=== PATIENT | female | born 1990 | race Caucasian/White ===

== ENCOUNTER 2018-12-23 13:48 | Outpatient (CLI) | payer MEDICAID ==
[~2018-12-23 13:48] MED LIST: CEPH-443
[2018-12-23 14:15] VITALS: BP 107/64; PULSE 91; RESP 18
[2018-12-23] MEDS ORDERED: TERBUTALINE 1 MG/ML INJ SC ONE (16:00)
[2018-12-23] MEDS ORDERED: LACTATED RINGER'S 1,000 ML IV SCH (16:00)
--- NOTE | 2018-12-23 17:04 | PN ---
Triage Information Date/Time Reason for visit: Uterine contractions Weeks of Gestation 28-year-old 3 para 2 at 38 weeks and 1 day of gestation with estimated date of delivery January 05, 2019 Patient presents with chief complaint of uterine contractions with pain level of 5-6 over 10 She reports positive movement, denies vaginal bleeding or leaking fluid Prior history significant for prior x2 She is currently scheduled for repeat on December 28 /Para 3 para 2 Diabetes: none Hypertention: none Objective Vital Signs Date Temp Pulse Resp B/P (MAP) Pulse Ox O2 O2 Flow FiO2 Time Delivery Rate 12/23/18 98.0 91 18 107/64 99 Room Air 14:15 (78) Heart Rate: 140's Heart Rate Comments heart rate tracing category 1 Contractions: >10 Minutes Apart Exam Cervix closed per nurse Results/Medications Medications Current Medications Lactated Ringer's 1,000 ml @ 125 mls/hr Q8H IV Last administered on 12/23/18at 16:33; Admin Dose 125 MLS/HR; Start 12/23/18 at 16:00 Disposition: Continuous observation Assessment/Plan Patient was given IV fluid hydration Terbutaline was given Keep patient n.p.o. Keep patient for observation If contractions continue and patient continues with pain will consider repeat C- section BRANDI OSHEA MD Dec 23, 2018 17:04
--- NOTE | 2018-12-23 20:10 | PN ---
Date/Time of Note Date/Time of Note DATE: 12/23/18 TIME: 20:08 OB Subjective Subjective Subjective 28 years old IUP 38 1/7 h/o CS X2 examined deny abdominal pain report movements heart regular rate abdomen soft no insicional sit, no uterine tenderness plan D/C home Follow up outpatiently in next week labor percationts are given YESSI NICOLE MD Dec 23, 2018 20:09
--- NOTE | 2018-12-23 20:39 | TRIAGE ---
OB Triage Datetime Report Generated by CPN: 12/23/2018 20:39 Datetime: 12/23/2018 19:45 Stage of : OB Triage Labor Evaluation Frequency: x3 Monitor Mode: External Duration (sec)2399: 50-100 Quality: Mild Pattern: Normal: <= 5 Contractions in 10 Minutes Resting Tone Between: Relaxed Heart Rate FHR Baseline Rate: 130 Monitor Mode: External US FHR Baseline Changes: No Baseline Change Variability: Moderate 6-25 bpm Accelerations: 15X15 Decelerations: None Category: Category I Pain Assessment Pain Scale: 0 Pain Presence: None/Denies Pain Type: N/A Pain Assessment Comments: pt states she "doesn't really feel pain, just discomfort" when she has co ntractions Datetime: 12/23/2018 18:48 Stage of : OB Triage Headache: Denies Blurred Vision: No RUQ Epigastric Pain: Denies Facial Edema: None Labor Evaluation Frequency: 14 Monitor Mode: External Duration (sec)2399: 60 Quality: Mild Pattern: Normal: <= 5 Contractions in 10 Minutes Resting Tone Between: Relaxed Heart Rate FHR Baseline Rate: 125 Monitor Mode: External US FHR Baseline Changes: No Baseline Change Variability: Moderate 6-25 bpm Accelerations: 15X15 Decelerations: None Category: Category I Pain Presence: None/Denies Vaginal Exam Membrane Status: Intact Datetime: 12/23/2018 18:00 Contraction Comments: 3 contractions noted in 1hr Datetime: 12/23/2018 17:48 Stage of : OB Triage Headache: Denies Blurred Vision: No RUQ Epigastric Pain: Denies Facial Edema: None Heart Rate FHR Baseline Rate: 135 Monitor Mode: External US FHR Baseline Changes: No Baseline Change Variability: Moderate 6-25 bpm Accelerations: 15X15 Decelerations: None Category: Category I Pain Assessment Pain Scale: 5 Pain Presence: Intermittent Pain Type: Contraction Pain Location: Abdomen Pain Relief Measures: Comfort Measures Vaginal Exam Membrane Status: Intact Datetime: 12/23/2018 17:18 Stage of : OB Triage Maternal Assessment Level of Consciousness: Keenly Alert, Responsive Headache: Denies Blurred Vision: No RUQ Epigastric Pain: Denies Facial Edema: None Pattern: Normal: <= 5 Contractions in 10 Minutes Heart Rate FHR Baseline Rate: 130 Monitor Mode: External US FHR Baseline Changes: No Baseline Change Variability: Moderate 6-25 bpm Accelerations: 15X15 Decelerations: None Category: Category I Pain Assessment Pain Scale: 5 Pain Presence: Intermittent Pain Type: Contraction Pain Location: Abdomen Pain Relief Measures: Comfort Measures Vaginal Exam Membrane Status: Intact Datetime: 12/23/2018 17:00 Contraction Comments: 5 contraction in 1hr Datetime: 12/23/2018 16:48 Stage of : OB Triage Headache: Denies Blurred Vision: No RUQ Epigastric Pain: Present Facial Edema: None Pattern: Normal: <= 5 Contractions in 10 Minutes Heart Rate FHR Baseline Rate: 130 Monitor Mode: External US FHR Baseline Changes: No Baseline Change Variability: Moderate 6-25 bpm Accelerations: 15X15 Decelerations: None Category: Category I Pain Assessment Pain Scale: 4 Pain Presence: Intermittent Pain Type: Contraction Pain Location: Abdomen Pain Relief Measures: Comfort Measures Vaginal Exam Membrane Status: Intact Datetime: 12/23/2018 16:00 Comments: 4 contractions noted in 1 hr Datetime: 12/23/2018 15:49 Stage of : OB Triage Headache: Denies Blurred Vision: No RUQ Epigastric Pain: Denies Facial Edema: None Heart Rate FHR Baseline Rate: 130 Monitor Mode: External US FHR Baseline Changes: No Baseline Change Variability: Moderate 6-25 bpm Accelerations: 15X15 Decelerations: None Category: Category I Pain Presence: Intermittent Pain Location: Abdomen Vaginal Exam Membrane Status: Intact Datetime: 12/23/2018 15:00 Contraction Comments: 1 contractions noted in 1 hr Datetime: 12/23/2018 14:55 Stage of : OB Triage Pattern: Normal: <= 5 Contractions in 10 Minutes Heart Rate FHR Baseline Rate: 145 Monitor Mode: External US FHR Baseline Changes: No Baseline Change Variability: Moderate 6-25 bpm Accelerations: 15X15 Decelerations: None Category: Category I Pain Assessment Pain Scale: 5 Pain Presence: Intermittent Pain Type: Contraction Pain Location: Abdomen Pain Relief Measures: Comfort Measures Datetime: 12/23/2018 14:06 Stage of : OB Triage Maternal Assessment Level of Consciousness: Keenly Alert, Responsive DTR's/Clonus: DTRs 2+; No Clonus Headache: Denies Blurred Vision: No Respiratory Effort: Unlabored; Regular Rhythm; Equal Expansion Breath Sounds, Left: Clear and Equal Breath Sounds, Right: Clear and Equal Nausea/Vomiting: Denies RUQ Epigastric Pain: Denies Lower Extremities Edema: None Degree: None Upper Extremities Edema: None Degree: None Facial Edema: None Temperature Route: Oral Fall Risk Assessment History of Falling: (0) No Secondary Diagnosis: (0) No Ambulatory Aid: (0) Bedrest/Nurse Assist IV Therapy: (0) No Gait: (0) Normal/Bedrest/Immobile Mental Status: (0) Oriented to Own Ability Fall Score: 0 Fall Risk Score Definition: No Risk: No action required Labor Evaluation Frequency: irr Monitor Mode: External Quality: Mild Pattern: Normal: <= 5 Contractions in 10 Minutes Resting Tone Between: Relaxed Heart Rate FHR Baseline Rate: 140 Monitor Mode: External US Variability: Moderate 6-25 bpm Category: Category I Pain Assessment Pain Scale: 6 Pain Presence: Intermittent Pain Type: Cramping Pain Location: Abdomen Datetime: 12/23/2018 14:04 Time of Arrival: 12/23/2018 14:04 EGA: 38.1 Arrived By: Ambulatory Arrived From: Home Chief Complaint: contractions Movement: Present Contractions: Occasional Time Contractions Began: 12/23/2018 07:00 Rupture of Membranes: Denies Vaginal Bleeding: None Vaginal Discharge: Denies Recent Sexual Intercouse: Denies Abdominal Trauma: Not Applicable Patient Complaints: Contractions Time Provider Notified: 12/23/2018 14:27 Provider Notified: Pavel Initial Plan: debra
== END 2018-12-23 20:22 | disposition home or self-care (01) ==
LOC: OBT 13:48 → L-D 13:48 → OBT 20:22
PROVIDERS: ATTEND Obstetrics & Gynecology
DX: O47.1 False labor at or after 37 completed weeks of gestation (principal); Z3A.38 38 weeks gestation of pregnancy
CPT/HCPCS: 76818; 96360; 96361; J3105; J7120; Z7500; G0463

== ENCOUNTER 2018-12-28 05:45 | Inpatient (IN) | payer MEDICAID ==
[2018-12-28] VITALS (7 sets, daily range): BP systolic 109–119; BP diastolic 57–69; PULSE 59–78; RESP 18–19; Ht 160 cm; Wt 91.8 kg
[~2018-12-28] VITALS: Ht 160 cm; Wt 91.8 kg
[2018-12-28] MEDS ORDERED: LACTATED RINGER'S 1,000 ML IV SCH (05:49)
[2018-12-28] MEDS ORDERED: CARBOPROST 250 MCG INJ IM PRN ×2 (06:00→09:00)
[2018-12-28] MEDS ORDERED: METHYLERGONOVINE 0.2 MG INJ IM PRN ×2 (06:00→09:00)
[2018-12-28] MEDS ORDERED: OXYTOCIN 30 UNITS/LR 500 ML IV PRN ×2 (06:00→09:00)
[2018-12-28] MEDS ORDERED: MISOPROSTOL 200 MCG TAB PR PRN ×2 (06:00→09:00)
[2018-12-28] MEDS ORDERED: CEFAZOLIN 2 GM/50 ML (PMX) 50 ML IVPB SCH (06:00)
[2018-12-28] MEDS ORDERED: OXYTOCIN 30 UNITS/LR 500 ML BAG IV ONE (07:19)
[2018-12-28] MEDS ORDERED: CITRIC ACID/NA CITRATE 30 ML CUP ONE (07:20)
[2018-12-28] MEDS ORDERED: ONDANSETRON 4 MG INJ ONE (07:20)
[2018-12-28] MEDS ORDERED: CITRIC ACID/NA CITRATE 30 ML CUP PO ONE (07:30)
[2018-12-28] MEDS ORDERED: ONDANSETRON 4 MG INJ IV ONE (07:30)
[2018-12-28] MEDS ORDERED: OXYTOCIN 10 UNIT INJ ONE (07:49)
[2018-12-28] MEDS ORDERED: PHENYLephrine (100 MCG/ML) 10ML SYG ONE (07:49)
[2018-12-28] MEDS ORDERED: morphine SULFATE/PF (10 MG/10 ML) INJ ONE (07:49)
[2018-12-28] MEDS ORDERED: KETOROLAC 30 MG INJ ONE (08:30)
[2018-12-28] MEDS ORDERED: DEXAMETHASONE 4 MG/ML 1 ML INJ ONE (08:30)
[2018-12-28] MEDS ORDERED: NALOXONE (0.4 MG/ML) INJ IV PRN ×2 (08:30→11:00)
[2018-12-28] MEDS ORDERED: DIPHENHYDRAMINE 50 MG INJ IV PRN ×2 (08:30→11:00)
[2018-12-28] MEDS ORDERED: ACETAMINOPHEN 500 MG TAB PO PRN (08:30)
[2018-12-28] MEDS ORDERED: METOCLOPRAMIDE 10 MG INJ ONE (08:30)
[2018-12-28] MEDS ORDERED: KETOROLAC 30 MG INJ IV PRN (08:30)
[2018-12-28] MEDS ORDERED: ONDANSETRON 4 MG INJ IV PRN (08:30)
[2018-12-28] MEDS ORDERED: HYDROmorphONE 0.5 MG/0.5 ML SYG IV PRN ×2 (08:30)
[2018-12-28] MEDS ORDERED: HYDROCODONE/APAP (5/325) TAB PO PRN (08:30)
[2018-12-28] MEDS ORDERED: NALBUPHINE HCL (10 MG/1 ML) INJ IV PRN (08:30)
[2018-12-28] MEDS ORDERED: morphine 2 MG INJ IV PRN ×2 (08:30)
[2018-12-28] MEDS ORDERED: OXYTOCIN 30 UNITS/LR 500 ML IV SCH (08:49)
[2018-12-28] MEDS ORDERED: NACL 0.9% 3 ML SYG IV SCH (09:00)
[2018-12-28] MEDS ORDERED: LANOLIN HPA 1 PKT TOP PRN (09:00)
[2018-12-28] MEDS ORDERED: EPHEDrine 25 MG/5 ML SYG IV PRN (11:00)
[2018-12-28] MEDS ORDERED: TRIMETHOBENZAMIDE 100 MG/ML VIAL IM PRN (11:00)
[2018-12-28] MEDS: CEFAZOLIN 2 GM/50 ML (PMX) 50 ML IVPB SCH ×2 (12:00→17:32)
[2018-12-29 00:20] VITALS: BP 102/66; PULSE 69; RESP 18
[2018-12-29] MEDS: CEFAZOLIN 2 GM/50 ML (PMX) 50 ML IVPB SCH (01:10)
[2018-12-29] MEDS: LACTATED RINGER'S 1,000 ML IV SCH ×3 (01:18→17:30)
[2018-12-29 03:50] VITALS: BP 92/54; PULSE 64; RESP 18
[2018-12-29 07:30] VITALS: BP 106/55; PULSE 69; RESP 18
[2018-12-29 17:35] VITALS: BP 108/58; PULSE 78; RESP 18
[2018-12-29] MEDS: OXYCODONE/ACETAMINOPHEN (5/325) TAB PO PRN ×2 (17:43→22:56)
[2018-12-29 19:40] VITALS: BP 107/58; RESP 18
[2018-12-30] MEDS: LACTATED RINGER'S 1,000 ML IV SCH ×2 (01:30→09:30)
[2018-12-30] MEDS: OXYCODONE/ACETAMINOPHEN (5/325) TAB PO PRN ×4 (04:15→19:19)
[2018-12-30 04:30] VITALS: BP 117/67; PULSE 84; RESP 18
[2018-12-30 08:00] VITALS: BP 107/54; PULSE 91; RESP 18
[2018-12-30 16:00] VITALS: BP 117/62; PULSE 93; RESP 16
[2018-12-30 19:45] VITALS: BP 122/71; PULSE 92; RESP 18
[2018-12-30] MEDS: IBUPROFEN 600 MG TAB PO SCH (23:37)
[2018-12-31 04:03] VITALS: BP 106/56; PULSE 92; RESP 18
[2018-12-31] MEDS: IBUPROFEN 600 MG TAB PO SCH (06:15)
[2018-12-31 08:00] VITALS: BP 121/67; PULSE 100; RESP 18
[2018-12-31] MEDS ORDERED: IBUPROFEN 600 MG TAB PO SCH (12:00)
== END 2018-12-31 15:07 | disposition home or self-care (01) | DRG 788 ==
LOC: L-D 05:45 → PP1 12:09
PROVIDERS: ADMIT Obstetrics & Gynecology; ATTEND Obstetrics & Gynecology
PROC: 10D00Z1 Extraction of Products of Conception, Low, Open Approach (ICD-10-PCS; principal; 2018-12-28 07:30)
DX: O65.5 Obstructed labor due to abnormality of maternal pelvic organs (principal); O34.211 Maternal care for low transverse scar from previous cesarean delivery; Z3A.39 39 weeks gestation of pregnancy; Z37.0 Single live birth
CPT/HCPCS: 85014; 85018; 85025; 85610; 85730; 86592; 86850; 86900; 86901; 87340; 99464; J0690; J1100; J1200; J1885; J2274; J2370; J2405; J2590; J2765; J7120